=== PATIENT | male | born 1955 | race Two or more races ===

== ENCOUNTER → 2017-09-26 | Outpatient (CLI) | payer BC | LOC: M LRY 19:22 | DX: M25.562 Pain in left knee (principal) | CPT/HCPCS: 73564 ==

== ENCOUNTER → 2017-09-26 | Outpatient (CLI) | payer BC | LOC: M LRY 19:18 | DX: M25.562 Pain in left knee (principal); Z53.9 Procedure and treatment not carried out, unspecified reason ==